=== PATIENT | female | born 1980 | race Caucasian/White ===

== ENCOUNTER 2017-08-28 22:48 | Emergency (ER) | payer OTHER ==
[~2017-08-28] VITALS: Ht 175.3 cm; Wt 106.6 kg
[2017-08-28 22:52] VITALS: Ht 175.3 cm; Wt 106.6 kg
[2017-08-28 23:53] LABS: BASOPHIL % 0.7 % (0-2); PLATELET COUNT 303 x10^3mcL (130-400); RED CELL DISTRIBUTION WIDTH 13.8 % (11.5-14.5)
[2017-08-29 00:04] LABS: CALCIUM 9.2 mg/dL (8.5-10.1); CARBON DIOXIDE 25.4 mmol/L (21-32); CHLORIDE SERUM 103 mmol/L (98-107); CREATININE SERUM 0.8 mg/dL (0.6-1.0); GFR1 > 60 mL/min; GLUCOSE SERUM 100 mg/dL (74-106); POTASSIUM SERUM 3.4 mmol/L (3.5-5.1); SODIUM SERUM 128 mmol/L (136-145)
[2017-08-29 00:06] LABS: ALBUMIN 3.6 g/dL (3.4-5.0); ALKALINE PHOSPHATASE 74 U/L (46-116); ALT/SGPT 42 U/L (14-59); AST/SGOT 23 U/L (15-37); BILIRUBIN TOTAL 0.3 mg/dL (0.20-1.00)
[2017-08-29 01:02] LABS: AMPHETAMINE QUAL UR NONE DETECTED (NEG <=1000)
[2017-08-29 05:29] VITALS: BP 123/80
== END 2017-08-29 05:30 | disposition home or self-care (01) ==
LOC: ED 22:48
PROVIDERS: Emergency Medicine
DX: R07.89 Other chest pain (principal)
CPT/HCPCS: J2270

== ENCOUNTER 2017-11-05 19:48 | Inpatient (IN) | payer OTHER ==
[~2017-11-05] VITALS: Ht 176 cm; Wt 112.5 kg
[2017-11-05 19:55] VITALS: Ht 176 cm; Wt 112.5 kg
[2017-11-05 21:45] LABS: BASOPHIL % 0.4 % (0-2); PLATELET COUNT 282 x10^3mcL (130-400); RED CELL DISTRIBUTION WIDTH 13.7 % (11.5-14.5)
[2017-11-05 21:53] LABS: CARBON DIOXIDE 28.2 mmol/L (21-32); CHLORIDE SERUM 104 mmol/L (98-107); CREATININE SERUM 0.8 mg/dL (0.6-1.0); GFR1 > 60 mL/min; GLUCOSE SERUM 83 mg/dL (74-106); POTASSIUM SERUM 3.8 mmol/L (3.5-5.1); SODIUM SERUM 141 mmol/L (136-145)
[2017-11-05 21:57] LABS: ALBUMIN 3.4 g/dL (3.4-5.0); ALKALINE PHOSPHATASE 68 U/L (46-116); ALT/SGPT 32 U/L (14-59); AST/SGOT 22 U/L (15-37); BILIRUBIN TOTAL 0.28 mg/dL (0.20-1.00); MAGNESIUM 2.1 mg/dL (1.8-2.4); TOTAL PROTEIN, SERUM 7.6 g/dL (6.4-8.2)
[2017-11-05 22:04] LABS: microscopic required? NO
[2017-11-05 22:15] LABS: urine erythrocyte NEGATIVE (NEGATIVE)
[2017-11-05 22:23] LABS: AMPHETAMINE QUAL UR NONE DETECTED (NEG <=1000)
[2017-11-05 22:24] VITALS: BP 128/76
[2017-11-05 22:27] LABS: PHOSPHOROUS 3.3 mg/dL (2.5-4.9)
[2017-11-05 22:35] LABS: FREE T4 1.09 ng/dL (0.76-1.46); FREE THYROXINE INDEX 2.8 ug/dL (1.4-4.5); T4(THYROXINE) 8.1 ug/dL (4.7-13.3)
[2017-11-05 22:43] LABS: CHOLESTEROL/HDL RATIO 5.4
[2017-11-05 23:17] LABS: T3 TOTAL 1.06 ng/mL
[2017-11-06 05:36] VITALS: BP 101/64
[2017-11-06 07:08] LABS: CALCIUM 8.6 mg/dL (8.5-10.1); CARBON DIOXIDE 24.2 mmol/L (21-32); CHLORIDE SERUM 104 mmol/L (98-107); CREATININE SERUM 0.8 mg/dL (0.6-1.0); GFR1 > 60 mL/min; GLUCOSE SERUM 78 mg/dL (74-106); POTASSIUM SERUM 3.9 mmol/L (3.5-5.1); SODIUM SERUM 139 mmol/L (136-145)
[2017-11-06 08:13] LABS: BASOPHIL % 0.4 % (0-2); PLATELET COUNT 261 x10^3mcL (130-400); RED CELL DISTRIBUTION WIDTH 13.9 % (11.5-14.5)
[2017-11-06 09:01] VITALS: BP 106/75
[2017-11-06 13:11] VITALS: BP 122/72
[2017-11-06 16:41] VITALS: BP 113/72
[2017-11-06 20:35] VITALS: BP 97/53
[2017-11-07] MEDS ORDERED: ZES5 PO (06:19)
[2017-11-07] MEDS ORDERED: PRI20 PO (06:19)
[2017-11-07] MEDS ORDERED: LIPI10 PO (06:19)
[2017-11-07 06:28] VITALS: BP 102/60
[2017-11-07 07:23] LABS: CALCIUM 8.6 mg/dL (8.5-10.1); CARBON DIOXIDE 24.7 mmol/L (21-32); CHLORIDE SERUM 103 mmol/L (98-107); CREATININE SERUM 0.8 mg/dL (0.6-1.0); GFR1 > 60 mL/min; GLUCOSE SERUM 82 mg/dL (74-106); MAGNESIUM 2.1 mg/dL (1.8-2.4); PHOSPHOROUS 3.8 mg/dL (2.5-4.9); SODIUM SERUM 137 mmol/L (136-145)
[2017-11-07 07:42] LABS: BASOPHIL % 0.4 % (0-2); PLATELET COUNT 250 x10^3mcL (130-400); RED CELL DISTRIBUTION WIDTH 13.8 % (11.5-14.5)
[2017-11-07 07:57] VITALS: BP 102/60
== END 2017-11-07 08:56 | disposition left against medical advice (07) | DRG 392 ==
LOC: ED 19:48 → DU 21:42
PROVIDERS: Emergency Medicine; Family Medicine Sports Medicine
DX: K21.9 Gastro-esophageal reflux disease without esophagitis (principal); I45.81 Long QT syndrome; G43.909 Migraine, unspecified, not intractable, without status migrainosus; G90.9 Disorder of the autonomic nervous system, unspecified; I35.1 Nonrheumatic aortic (valve) insufficiency; K76.0 Fatty (change of) liver, not elsewhere classified; M51.26 Other intervertebral disc displacement, lumbar region; N83.201 Unspecified ovarian cyst, right side; E78.5 Hyperlipidemia, unspecified; E66.9 Obesity, unspecified; Z68.36 Body mass index [BMI] 36.0-36.9, adult
CPT/HCPCS: 83880; 84439; J2270; J2405; J2550; J7030; Q0092; Q9966; Q9967

== ENCOUNTER 2017-11-09 20:47 | Emergency (ER) | payer OTHER ==
[~2017-11-09] VITALS: Ht 175.3 cm; Wt 112.9 kg
[~2017-11-09 20:47] MED LIST: LIPI10 PO; PRI20 PO; ZES5 PO
[2017-11-09 20:51] VITALS: Ht 175.3 cm; Wt 112.9 kg
[2017-11-09 21:24] LABS: BASOPHIL % 0.9 % (0-2); PLATELET COUNT 297 x10^3mcL (130-400); RED CELL DISTRIBUTION WIDTH 13.8 % (11.5-14.5)
[2017-11-09 21:35] LABS: CALCIUM 8.8 mg/dL (8.5-10.1); CARBON DIOXIDE 22.9 mmol/L (21-32); CHLORIDE SERUM 102 mmol/L (98-107); CREATININE SERUM 0.9 mg/dL (0.6-1.0); GFR1 > 60 mL/min; GLUCOSE SERUM 91 mg/dL (74-106); POTASSIUM SERUM 3.8 mmol/L (3.5-5.1); SODIUM SERUM 137 mmol/L (136-145)
[2017-11-09 21:40] LABS: ALBUMIN 3.5 g/dL (3.4-5.0); ALKALINE PHOSPHATASE 68 U/L (46-116); ALT/SGPT 42 U/L (14-59); AMYLASE 58 U/L (25-115); AST/SGOT 24 U/L (15-37); BILIRUBIN TOTAL 0.41 mg/dL (0.20-1.00); LIPASE 135 IU/L (73-393)
[2017-11-10 00:14] VITALS: BP 108/71
== END 2017-11-10 00:14 | disposition home or self-care (01) ==
LOC: ED 20:47
PROVIDERS: Emergency Medicine
DX: N39.0 Urinary tract infection, site not specified (principal); R10.11 Right upper quadrant pain; G43.909 Migraine, unspecified, not intractable, without status migrainosus
CPT/HCPCS: 83880; J2270; J2405; J3010; Q0092